=== PATIENT | male | born 1955 | race Caucasian/White ===

== ENCOUNTER 2019-01-15 09:02 | Emergency (ER) | payer OTHER ==
[~2019-01-15] VITALS: Ht 182.9 cm; Wt 95.2 kg
[~2019-01-15 09:02] MED LIST: Norco 5-325 Ta1 EACH PO; OXYACE5T PO; RXOXYACE PO
[2019-01-15] MEDS ORDERED: Norco 5-325 Ta1 EACH PO (10:27)
== END 2019-01-15 10:54 | disposition home or self-care (01) ==
LOC: ER 09:02
DX: S42.431A Displaced fracture (avulsion) of lateral epicondyle of right humerus, initial encounter for closed fracture (principal); S52.041A Displaced fracture of coronoid process of right ulna, initial encounter for closed fracture; I10 Essential (primary) hypertension; F17.210 Nicotine dependence, cigarettes, uncomplicated; W01.0XXA Fall on same level from slipping, tripping and stumbling without subsequent striking against object, initial encounter
CPT/HCPCS: 29105; 73080; 99283-25

== ENCOUNTER 2019-06-22 08:40 | Emergency (ER) | payer OTHER ==
[~2019-06-22] VITALS: Ht 182.9 cm; Wt 90.7 kg
[2019-06-22] MEDS ORDERED: IBUP600 PO (08:53)
[2019-06-22] MEDS ORDERED: HYDR1TAB94 PO (09:51)
[2019-06-22] MEDS ORDERED: Robaxin500 MG PO (09:51)
[2019-06-22] MEDS ORDERED: LIDO700A20 TOP (09:51)
== END 2019-06-22 10:49 | disposition home or self-care (01) ==
LOC: ER 08:40
DX: S22.41XA Multiple fractures of ribs, right side, initial encounter for closed fracture (principal); W01.198A Fall on same level from slipping, tripping and stumbling with subsequent striking against other object, initial encounter; I10 Essential (primary) hypertension; F17.210 Nicotine dependence, cigarettes, uncomplicated
CPT/HCPCS: 71101; 99283-25

== ENCOUNTER 2019-08-06 13:09 | Emergency (ER) | payer OTHER ==
[~2019-08-06] VITALS: Ht 182.9 cm; Wt 88.5 kg
[~2019-08-06 13:09] MED LIST changes: +HYDR1TAB94 PO; +IBUP600 PO; +LIDO700A20 TOP; +Robaxin500 MG PO
[2019-08-06 13:30] LABS: Chloride (POC) 101 mmol/L (98-108); Creatinine (POC) 0.9 mg/dL (0.8-1.3); Glucose (ISTAT POC) 142 mg/dL (70-99); Hemoglobin (POC) 17.3 g/dL (13.5-17.5); Potassium (POC) 4.3 mmol/L (3.5-5.5); Sodium (POC) 139 mmol/L (135-148); Total CO2 (POC) 30 mmol/L (21-32)
[2019-08-06 13:31] LABS: BASOPHILS ABSOLUTE AUTO 0.13 K/mm3 (0.00-0.23); BASOPHILS PERCENT AUTO 1 % (0-2); EOSINOPHILS ABSOLUTE AUTO 0.82 K/mm3 (0.00-0.68); EOSINOPHILS PERCENT AUTO 5 % (0-6); Hematocrit 49.2 % (37.0-53.0); Hemoglobin 17.6 g/dL (13.5-17.5); IMMATURE GRAN ABSOLUTE AUTO 0.05 K/mm3 (0.00-0.10); IMMATURE GRAN PERCENT AUTO 0 % (0-1); LYMPHOCYTES ABSOLUTE AUTO 1.69 K/mm3 (0.84-5.20); LYMPHOCYTES PERCENT AUTO 11 % (21-46); MONOCYTES ABSOLUTE AUTO 1.11 K/mm3 (0.16-1.47); MONOCYTES PERCENT AUTO 7 % (4-13); Mean Corpuscular HGB 36.7 pg (26.0-34.0); Mean Corpuscular HGB Conc 35.8 g/dL (31.5-36.5); Mean Corpuscular Volume 103 fL (80-100); Mean Platelet Volume 9.4 fL (9.1-12.4); NEUTROPHILS ABSOLUTE AUTO 11.79 K/mm3 (1.96-9.15); NEUTROPHILS PERCENT AUTO 76 % (41-73); Platelet Count 308 K/mm3 (150-400); RDW Coefficient Variation 11.8 % (11.7-14.2); RDW Standard Deviation 44.9 fL (35.1-46.3); Red Blood Cell Count 4.79 M/mm3 (4.30-5.90); White Blood Cell Count 15.59 K/mm3 (4.00-11.30)
[2019-08-06] MEDS ORDERED: LISI5 PO (13:51)
[2019-08-06] MEDS ORDERED: ATOR40TA PO (13:51)
[2019-08-06] MEDS ORDERED: Hydrochloroth12.5 MG PO (13:52)
[2019-08-06 14:30] LABS: Alanine Aminotransfer (ALT/SGP 33 U/L (12-78); Albumin, Blood 4.3 g/dL (3.4-5.0); Albumin/Globulin Ratio 0.9 (0.8-1.8); Alk Phos 84 U/L (40-126); Anion Gap 8 mmol/L (6-16); Aspartate Aminotrans (AST/SGOT 27 U/L (12-37); Bilirubin, Total 1.1 mg/dL (0.1-1.0); Blood Urea Nitrogen 26 mg/dL (8-24); CO2, Blood 28 mmol/L (21-32); Calcium, Blood 9.4 mg/dL (8.5-10.1); Chloride, Blood 102 mmol/L (98-108); Globulin, Blood 4.7 g/dL (2.2-4.0); Glomerular Filtration Rate >60 (60-); Glucose, Blood 144 mg/dL (70-99); Potassium, Blood 4.4 mmol/L (3.5-5.5); Sodium, Blood 138 mmol/L (136-145)
[2019-08-06] MEDS ORDERED: DELTASONE20 MG PO (17:58)
[2019-08-06] MEDS ORDERED: ALBU90OI INH (17:58)
== END 2019-08-06 18:12 | disposition home or self-care (01) ==
LOC: ER 13:09
PROVIDERS: Physician Assistant
DX: J44.1 Chronic obstructive pulmonary disease with (acute) exacerbation (principal); I10 Essential (primary) hypertension; Z87.891 Personal history of nicotine dependence; Z79.899 Other long term (current) drug therapy
CPT/HCPCS: 36415; 71046; 71260; 80047; 80053; 83605; 83880; 84484; 85014; 85025; 87040; 93005; 93010; 94640; 94644; 96361; 96374-59; 99285-25; J2930; J7030; Q9967

== ENCOUNTER 2021-02-28 18:45 | Emergency (ER) | payer OTHER ==
[~2021-02-28] VITALS: Ht 182.9 cm; Wt 88.5 kg
[~2021-02-28 18:45] MED LIST changes: +ALBU90OI INH; +ATOR40TA PO; +DELTASONE20 MG PO; +Hydrochloroth12.5 MG PO; +LISI5 PO
[2021-02-28] MEDS ORDERED: KLOR-CON 1010 ME1 PO (18:55)
[2021-02-28] MEDS ORDERED: ASPI81CH PO (18:55)
[2021-02-28] MEDS ORDERED: CLOP75 PO (18:56)
== END 2021-02-28 20:40 | disposition home or self-care (01) ==
LOC: ER 18:45
DX: T81.33XA Disruption of traumatic injury wound repair, initial encounter (principal); I10 Essential (primary) hypertension; Z79.82 Long term (current) use of aspirin; Z79.02 Long term (current) use of antithrombotics/antiplatelets; Z79.899 Other long term (current) drug therapy; Z87.891 Personal history of nicotine dependence; W01.0XXA Fall on same level from slipping, tripping and stumbling without subsequent striking against object, initial encounter
CPT/HCPCS: 12002; 99283-25

== ENCOUNTER 2021-10-18 09:44 | Emergency (ER) | payer OTHER ==
[~2021-10-18] VITALS: Ht 182.9 cm; Wt 86.2 kg
[~2021-10-18 09:44] MED LIST changes: +ASPI81CH PO; +CLOP75 PO; +KLOR-CON 1010 ME1 PO
[2021-10-18] MEDS ORDERED: Percocet 10-321 EACH PO (15:28)
== END 2021-10-18 15:43 | disposition home or self-care (01) ==
LOC: ER 09:44
DX: M51.16 Intervertebral disc disorders with radiculopathy, lumbar region (principal); M47.26 Other spondylosis with radiculopathy, lumbar region; I10 Essential (primary) hypertension; Z87.891 Personal history of nicotine dependence
CPT/HCPCS: 72100; J1170; J1885; J7030

== ENCOUNTER 2021-11-02 12:25 | Inpatient (IN) | payer OTHER, MEDICARE ==
[~2021-11-02] VITALS: Ht 172.7 cm; Wt 74.4 kg
[~2021-11-02 12:25] MED LIST changes: +LISI20 PO; -LISI5 PO; +Percocet 10-321 EACH PO
[2021-11-02 13:47] LABS: BASOPHILS ABSOLUTE AUTO 0.04 K/mm3 (0.00-0.23); BASOPHILS PERCENT AUTO 1 % (0-2); EOSINOPHILS ABSOLUTE AUTO 0.05 K/mm3 (0.00-0.68); EOSINOPHILS PERCENT AUTO 1 % (0-6); IMMATURE GRAN ABSOLUTE AUTO 0.46 K/mm3 (0.00-0.10); IMMATURE GRAN PERCENT AUTO 8 % (0-1); LYMPHOCYTES ABSOLUTE AUTO 0.68 K/mm3 (0.84-5.20); LYMPHOCYTES PERCENT AUTO 12 % (21-46); MONOCYTES PERCENT AUTO 9 % (4-13); Mean Corpuscular HGB 30.5 pg (26.0-34.0); Mean Corpuscular HGB Conc 30.7 g/dL (31.5-36.5); Mean Corpuscular Volume 99 fL (80-100); NEUTROPHILS ABSOLUTE AUTO 3.84 K/mm3 (1.96-9.15); NEUTROPHILS PERCENT AUTO 69 % (41-73); Platelet Count 195 K/mm3 (150-400); RDW Coefficient Variation 18.8 % (11.7-14.2); RDW Standard Deviation 66.1 fL (35.1-46.3); Red Blood Cell Count 1.64 M/mm3 (4.30-5.90); White Blood Cell Count 5.57 K/mm3 (4.00-11.30)
[2021-11-02 13:55] LABS: Hematocrit 16.3 % (37.0-53.0)
[2021-11-02 14:15] LABS: Albumin, Blood 2.8 g/dL (3.4-5.0); Albumin/Globulin Ratio 0.7 (0.8-1.8); Bilirubin, Total 0.5 mg/dL (0.1-1.0); Bun/Creatinine Ratio 27.5 (12.0-20.0); Calcium, Blood 8.3 mg/dL (8.5-10.1); Creatinine, Blood 1.38 mg/dL (0.60-1.20); Globulin, Blood 3.9 g/dL (2.2-4.0); Potassium, Blood 4.9 mmol/L (3.5-5.5); Total Protein, Blood 6.7 g/dL (6.4-8.2)
[2021-11-02 14:27] LABS: Source, Urine Clean Catch
[2021-11-02 14:37] LABS: Appearance, Urine Hazy (Clear); Bilirubin, Urine Neg (Neg); Blood, Urine Neg (Neg); Color, Urine Yellow (P-Yellow); Glucose Qualitative, Urine Neg (Neg); Ketones, Urine Neg (Neg); Leukocyte Esterase, Urine Neg (Neg); Nitrite, Urine Neg (Neg); Protein, Urine 1+ (Neg); Specific Gravity, Urine 1.015 (1.003-1.022); Urobilinogen, Urine NORM (Normal)
[2021-11-02 14:56] LABS: Bacteria Mod /hpf; Red Blood Cells, Urine Not Seen /hpf (0-2); Squamous Epithelial Cells Rare /hpf (Few); White Blood Cells, Urine Rare /hpf (0-5)
[2021-11-02 17:40] LABS: IMMATURE RETIC FRACTION 29.1 % (2.3-16.0); RETICULOCYTE ABSOLUTE 0.0328 M/mm3 (0.0200-0.1100); RETICULOCYTE COUNT PERCENT 2.2 % (0.50-2.50)
[2021-11-02 17:54] LABS: Hematocrit 14.8 % (37.0-53.0); Hemoglobin 4.6 g/dL (13.5-17.5)
[2021-11-03 02:37] LABS: Mean Corpuscular HGB 31.3 pg (26.0-34.0); Mean Corpuscular HGB Conc 32.9 g/dL (31.5-36.5); Mean Corpuscular Volume 95 fL (80-100); Platelet Count 151 K/mm3 (150-400); RDW Coefficient Variation 17.2 % (11.7-14.2); RDW Standard Deviation 56.5 fL (35.1-46.3); Red Blood Cell Count 1.79 M/mm3 (4.30-5.90); White Blood Cell Count 4.36 K/mm3 (4.00-11.30)
[2021-11-03 02:45] LABS: Hemoglobin 5.6 g/dL (13.5-17.5)
[2021-11-03 03:02] LABS: BAND PERCENT MAN 5 % (0-8); BASOPHILS ABSOLUTE MAN 0.04 K/mm3 (0.00-0.23); BASOPHILS PERCENT MAN 1 % (0-2); EOSINOPHILS PERCENT MAN 0 % (0-6); LYMPHOCYTES ABSOLUTE MAN 0.61 K/mm3 (0.84-5.20); LYMPHOCYTES PERCENT MAN 14 % (21-46); METAMYELOCYTE ABSOLUTE MAN 0.04 K/mm3 (0.00-0.00); METAMYELOCYTE PERCENT MAN 1 % (0-0); MONOCYTES ABSOLUTE MAN 0.34 K/mm3 (0.16-1.47); MONOCYTES PERCENT MAN 8 % (4-13); MYELOCYTE ABSOLUTE MAN 0.04 K/mm3 (0.00-0.00); MYELOCYTE PERCENT MAN 1 % (0-0); NEUTROPHILS ABSOLUTE MAN 3.27 K/mm3 (1.96-9.15); SEG NEUTROPHILS PERCENT MAN 70 % (41-73); TOTAL CELLS COUNTED 100
[2021-11-03 03:09] LABS: Albumin, Blood 2.4 g/dL (3.4-5.0); Albumin/Globulin Ratio 0.7 (0.8-1.8); Bilirubin, Total 0.8 mg/dL (0.1-1.0); Bun/Creatinine Ratio 27.7 (12.0-20.0); Calcium, Blood 7.6 mg/dL (8.5-10.1); Creatinine, Blood 1.3 mg/dL (0.60-1.20); Globulin, Blood 3.4 g/dL (2.2-4.0); Potassium, Blood 4.8 mmol/L (3.5-5.5); Total Protein, Blood 5.8 g/dL (6.4-8.2)
--- NOTE | 2021-11-03 07:18 | NUR ---
SHIFT SUMMARY PT IS A 66 Y/O MALE, ADMITTED FOR SEVERE ANEMIA AND WITH A RECENT DX OF CANCER WITH METS. HE IS A&O X 4, 1PA TO THE BATHROOM. PT RECEIVED 3 UNITS OF PRBCS DURING THE NIGHT, WITH LAST H&H BETWEEN SECOND AND THIRD UNIT AT 5.6/17.0. HOSPITALIST DR PACHECO INFORMED, AND THIRD UNIT ORDERED AND TRANSFUSED. AT START OF THIRD UNIT OF PRBCS, PT TEMP INCREASED FROM 99.1 TO 100.6. NO OTHER SIGNS OF REACTION NOTED. HOSPITALIST DR PACHECO NOTIFIED, AND HE ORDERED THE UNIT OF BLOOD TO BE FINISHED. BP WAS LOW THROUGH THE NIGHT, IN THE 90S SYSTOLIC. TELE SHOWED NSR IN THE 90S WITH FREQUENT PVCS. VITAL SIGNS OTHERWISE STABLE. PT WAS MEDICATED FOR GENERALIZED PAIN WITH PRN OXYCODONE. NO C/O NAUSEA OR SOB. NO OTHER ACUTE CHANGES IN PT CONDITION NOTED DURING THE NIGHT. REPORT GIVEN TO ONCOMING RN.
[2021-11-03 08:52] LABS: Hematocrit 20.3 % (37.0-53.0); Hemoglobin 6.8 g/dL (13.5-17.5)
--- NOTE | 2021-11-03 11:07 | NUR ---
Spiritual care visit conducted. Patient is sitting on EOB and alert. Patient immediately tells me about his cancer diagnosis and the troubles he is having with health issurance and having to travel to [place] for treatment. He tells me that he lives alone and has a strained but amicable relationship with his daughter who lives in [place]. After surface level discussion some therapeutic alliance is established and patient becomes emotional about his diagnosis and his fears of the unknown. Patient also talks about the fact that he is "not a holiness man" but he is leaning into God with his prayers at this time. I normalize patient's experience, and provide therapeutic listening, anxiety containment, spiritual guidance and prayer. Patient responds well and shows signs of increased peace. I will continue to assist patient in developing a health prayer practice.
--- NOTE | 2021-11-03 12:31 | NUR ---
Pt alert oriented affect flat very fatigued and stressed. He was engaged in converstion good eye contact. We reviewed his symptoms he has started having mild headaches and blurred vision. he feels slightly short of breath and some pain with deep breathing. most of his pain is in his back he is starting to have more pressure and pain in his pelvis and hips. walking has become more painfull and difficult. Denies falling but suspecct he has. States urination is ok but frequent. He has had some constipation but not now. He is sleeping ok but struggling with food and appetite. He has been using heat at home for his back he has not tried ice or alternting heat and ice. He feels the increase pain medication is helping. We had an in depth conversation about his support system. 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 He has a daughter that he has not told yet about his health. He has not experinced cancer treament with a friend or family member. He became tearfull when discussing his daughter. Gave him a choice of reviewing treament and his future needs now or later. He wanted to talk now because he has been trying to sort out and wondering what will happen. We reviewed diagnositics and biopsy and seeing on oncolgist and radiologist. Review of chemo and radiation and immunosuppression medications. stated that our department will be a remain a resource to him and can help if needed after discharge. Was forthwright about how tough this will be. Advised him once we have a disgnosis then we will talk about what he wants to do. He epressed some relief at knowing how to go forward. May have to continue these conversations he is very fatigued and frail he may not retain the information due to his stress, anemeia and narcotics. He has his cell phone but no key entry operator. it is very old and specific cable had him call his friend to bring his cable. Asked him to call his daughter. Gave him our office number and advised we can update his daughter with the details. Review of home medications. He ahs only been taking his blood pressure medicine no lipitor. He denies any durgs or alcohol. Updated phsyician suggest we hold lipitor due to potential side effects. Spoke with boxing and pressing supervisor about smaller more frequnt meals.Suggest better IV access and discussed possible future need for nephrology with phsycian. Will continue to have chaplian see him. Will get a polst and discuss whishes once he is diagnosed. It would be to much right now. Will montitor pain and constipation. .
--- NOTE | 2021-11-03 12:47 | NUR ---
NURSES NOTE PATIENT IS REFUSING HATCH CATHETER. PHYSICIAN NOTIFIED.
[2021-11-03 15:21] LABS: Hematocrit 21.2 % (37.0-53.0); Hemoglobin 7.1 g/dL (13.5-17.5)
[2021-11-03 18:19] LABS: Hematocrit 22.1 % (37.0-53.0); Hemoglobin 7.5 g/dL (13.5-17.5)
--- NOTE | 2021-11-03 18:33 | NUR ---
SHIFT SUMMARY PATIENT ATTEMPTING TO REST IN BED UNABLE TO GET COMFORTABLE. PATIENT COMPLAINING OF CHRONIC BACK PAIN 09/03. MEDICATED PER JAN. PATIENT HAS WOUND ON MID BACK WITH MEPILEX DRESSING IN PLACE. BP LOW AND BP MEDS HELD. PATIENT RECEIVED 1 UNIT OF BLOOD THIS SHIFT. LAST H&H 7.1. PATIENT REFUSED HATCH CATHETER PLACEMENT AND DOCTOR NOTIFIED. TELEMETRY D/C'D. PATIENT WENT TO CT TODAY. TOLERATED WELL. WILL CONTINUE TO MONITOR.
[2021-11-04 00:24] LABS: Hematocrit 21.1 % (37.0-53.0); Hemoglobin 7.2 g/dL (13.5-17.5)
--- NOTE | 2021-11-04 03:40 | NUR ---
SHIFT SUMMARY PATIENT HAD NO ACUTE CHANGES OBSERVED. AXOX 4 AND SBA TO BR. USES URINAL AT BS. REPORTED BACK PAIN AND OXYCODONE 10 MG GIVEN PER EMAR. DENIES CHEST PAIN, SOB, AND N/V. PIV REMAIN INTACT. VSS/AFEBRILE. COOPERATIVE WITH CARE. CALL LIGHT IN REACH. BED IN LOWEST POSITION. WILL CONTINUE TO MONITOR UNTIL DAY SHIFT NURSE ASSUMES CARE.
[2021-11-04 06:42] LABS: Hematocrit 21.8 % (37.0-53.0); Hemoglobin 7.3 g/dL (13.5-17.5); Mean Corpuscular HGB 30.8 pg (26.0-34.0); Mean Corpuscular HGB Conc 33.5 g/dL (31.5-36.5); Mean Corpuscular Volume 92 fL (80-100); Mean Platelet Volume 9.3 fL (9.1-12.4); Platelet Count 148 K/mm3 (150-400); RDW Coefficient Variation 17.1 % (11.7-14.2); RDW Standard Deviation 54.2 fL (35.1-46.3); Red Blood Cell Count 2.37 M/mm3 (4.30-5.90); White Blood Cell Count 4.94 K/mm3 (4.00-11.30)
[2021-11-04 07:02] LABS: Albumin, Blood 2.3 g/dL (3.4-5.0); Anion Gap 10 mmol/L (6-16); Blood Urea Nitrogen 33 mg/dL (8-24); Bun/Creatinine Ratio 24.1 (12.0-20.0); CO2, Blood 20 mmol/L (21-32); Calcium, Blood 8.1 mg/dL (8.5-10.1); Chloride, Blood 108 mmol/L (98-108); Creatinine, Blood 1.37 mg/dL (0.60-1.20); Glomerular Filtration Rate 52 (60-); Glucose, Blood 93 mg/dL (70-99); Phosphorus, Blood 3.2 mg/dL (2.5-4.9); Potassium, Blood 4.6 mmol/L (3.5-5.5); Sodium, Blood 138 mmol/L (136-145)
[2021-11-04 07:06] LABS: BAND PERCENT MAN 4 % (0-8); BASOPHILS ABSOLUTE MAN 0.14 K/mm3 (0.00-0.23); BASOPHILS PERCENT MAN 3 % (0-2); EOSINOPHILS ABSOLUTE MAN 0.04 K/mm3 (0.00-0.68); EOSINOPHILS PERCENT MAN 1 % (0-6); LYMPHOCYTES ABSOLUTE MAN 0.64 K/mm3 (0.84-5.20); LYMPHOCYTES PERCENT MAN 13 % (21-46); METAMYELOCYTE ABSOLUTE MAN 0.09 K/mm3 (0.00-0.00); METAMYELOCYTE PERCENT MAN 2 % (0-0); MONOCYTES ABSOLUTE MAN 0.24 K/mm3 (0.16-1.47); MONOCYTES PERCENT MAN 5 % (4-13); NEUTROPHILS ABSOLUTE MAN 3.75 K/mm3 (1.96-9.15); SEG NEUTROPHILS PERCENT MAN 72 % (41-73); TOTAL CELLS COUNTED 100
[2021-11-04 11:32] LABS: Source, Urine Catheter
[2021-11-04 11:37] LABS: Appearance, Urine Clear (Clear); Bilirubin, Urine Neg (Neg); Blood, Urine Neg (Neg); Color, Urine Yellow (P-Yellow); Glucose Qualitative, Urine Neg (Neg); Ketones, Urine Neg (Neg); Leukocyte Esterase, Urine Neg (Neg); Nitrite, Urine Neg (Neg); Protein, Urine 1+ (Neg); Specific Gravity, Urine 1.015 (1.003-1.022); Urobilinogen, Urine NORM (Normal)
--- NOTE | 2021-11-04 14:11 | NUR ---
Requested by hospitalist to consult for pain management for Sae. Chart reviewed. Dr. Santana consulted with pt this morning and together they came up with a treatment plan for Sae's prostate cancer going forward. Reviewed Dr. Alarcon's and Dr. Santana's notes, labs, EMAR and pt's home med list. Dr. Santana has ordered dexamethasone 4 mg BID for pt's bone pain as well as to decrease the side effects from the chemo that pt will start while he is here in the hospital. Spoke with nursing and went to go visit with pt. Sae has recently received IV dilaudid and is currently asleep with occasional snoring at this time. Left Sae undisturbed as he appears comfortable at this time. Reviewed pt's current pain regimen with [facility] pharmacist. Will plan to reevaluate pt's pain once dexamethasone has been started. If the IV dilaudid works better for managing pt's pain, may consider changing to PO dilaudid if pt is tolerating PO food/fluids without nausea. May consider a longer acting narcotic if the current dexamethasone, dilaudid and oxycodone do not provide patient with manageble pain relief. Nursing updated. PC to continue to follow for symptom management and advanced care planning as needed.
--- NOTE | 2021-11-04 18:45 | NUR ---
SHIFT SUMMARY PATIENT IS SITTING UP IN BED. PATIENT IS BEING MEDICATED FOR SEVERE BACK PAIN WITH LITTLE RELIEF FROM THE PAIN MEDICATIONS. 3L NC APPLIED AFTER GIVING DILAUDID AND CONTINUOUS PULSE OX ON AND PLACED INSIDE ROOM. PATIENT STATED HE WAS STRUGGLING TO URINATE AND AGREED TO HAVING A HATCH CATHETER PLACED. TOLERATED WELL. DR. LARSEN CAME BY AND DISCUSSED PATIENT'S STAGE 4 PROSTATE CANCER AND PATIENT AGREED TO START CHEMO. CHEMO MEDICATION MUST BE ORDERED PER PHARMACY AND WILL NOT BE AVAILABLE UNTIL SATURDAY OR . WILL CONTINUE TO MONITOR.
--- NOTE | 2021-11-05 03:19 | NUR ---
SHIFT SUMMARY PATIENT HAD NO ACUTE CHANGES OBSERVED. AXOX 4 AND SBA TO BR. REPORTED BACK PAIN AND OXYCODONE 10 MG GIVEN PER EMAR. DENIES SOB AND N/V. VSS/AFEBRILE. ON 3L O2 NC. HATCH PATENT AND DRAINING TO GRAVITY. CALL LIGHT IN REACH. BED IN LOWEST POSITION. WILL CONTINUE TO MONITOR UNTIL DAY SHIFT NURSE ASSUMES CARE.
[2021-11-05 04:42] LABS: Hematocrit 22.2 % (37.0-53.0); Hemoglobin 7.2 g/dL (13.5-17.5); Mean Corpuscular HGB 30.5 pg (26.0-34.0); Mean Corpuscular HGB Conc 32.4 g/dL (31.5-36.5); Mean Corpuscular Volume 94 fL (80-100); Mean Platelet Volume 9.4 fL (9.1-12.4); Platelet Count 142 K/mm3 (150-400); RDW Coefficient Variation 16.8 % (11.7-14.2); RDW Standard Deviation 55.1 fL (35.1-46.3); Red Blood Cell Count 2.36 M/mm3 (4.30-5.90); White Blood Cell Count 4.52 K/mm3 (4.00-11.30)
[2021-11-05 05:27] LABS: BAND PERCENT MAN 10 % (0-8); BASOPHILS ABSOLUTE MAN 0.04 K/mm3 (0.00-0.23); BASOPHILS PERCENT MAN 1 % (0-2); EOSINOPHILS PERCENT MAN 0 % (0-6); LYMPHOCYTES ABSOLUTE MAN 0.13 K/mm3 (0.84-5.20); LYMPHOCYTES PERCENT MAN 3 % (21-46); MONOCYTES ABSOLUTE MAN 0.31 K/mm3 (0.16-1.47); MONOCYTES PERCENT MAN 7 % (4-13); MYELOCYTE ABSOLUTE MAN 0.09 K/mm3 (0.00-0.00); MYELOCYTE PERCENT MAN 2 % (0-0); NEUTROPHILS ABSOLUTE MAN 3.93 K/mm3 (1.96-9.15); SEG NEUTROPHILS PERCENT MAN 77 % (41-73); TOTAL CELLS COUNTED 100
[2021-11-05 05:41] LABS: Anion Gap 10 mmol/L (6-16); Blood Urea Nitrogen 32 mg/dL (8-24); Bun/Creatinine Ratio 27.8 (12.0-20.0); CO2, Blood 20 mmol/L (21-32); Calcium, Blood 8.6 mg/dL (8.5-10.1); Chloride, Blood 107 mmol/L (98-108); Creatinine, Blood 1.15 mg/dL (0.60-1.20); Glomerular Filtration Rate >60 (60-); Glucose, Blood 146 mg/dL (70-99); Potassium, Blood 4.9 mmol/L (3.5-5.5); Sodium, Blood 137 mmol/L (136-145)
--- NOTE | 2021-11-05 15:19 | NUR ---
Pt resting in bed upon arrival. Pt reports 5/10 pain. He reports current regimen is managing his pain. Reviewed plan of care and offered therapeutic listening. Answered questions and validated concerns. Pt expresses appreciation and reports no other concerns at this time. Palliative Care will remain available.
--- NOTE | 2021-11-05 18:42 | NUR ---
SHIFT SUMMARY PATIENT RESTING IN BED. PAIN WAS MORE CONTROLLED THROUGHOUT SHIFT THAN YESTERDAY WITH ONLY PO PAIN MEDS NEEDED. PATIENT TOOK OFF NC AND CONTINUOUS PULSE OX. TOLERATED WELL. PATIENT GOT UP TO CHAIR FOR LUNCH AND WORKED WITH PHYSICAL THERAPY TODAY. VITAL SIGNS STABLE. WILL CONTINUE TO MONITOR.
--- NOTE | 2021-11-06 03:04 | NUR ---
SHIFT SUMMARY PATIENT HAD NO ACUTE CHANGES OBSERVED. AXOX 4 AND SBA TO BR. ON ROOM AIR. HATCH PATENT AND DRAINING TO GRAVITY. VSS/AFEBRILE. REPORTED BACK/HIP PAIN AND OXYCODONE 10 MG GIVEN PER EMAR. PATIENT ABLE TO SLEEP. DENIES SOB AND N/V. COOPERATIVE WITH CARE. CALL LIGHT IN REACH. BED IN LOWEST POSITION. WILL CONTINUE TO MONITOR UNTIL DAY SHIFT NURSE ASSUMES CARE.
[2021-11-06 05:27] LABS: Hematocrit 21.4 % (37.0-53.0); Mean Corpuscular HGB 31.1 pg (26.0-34.0); Mean Corpuscular HGB Conc 32.7 g/dL (31.5-36.5); Mean Corpuscular Volume 95 fL (80-100); Mean Platelet Volume 9.7 fL (9.1-12.4); Platelet Count 141 K/mm3 (150-400); RDW Coefficient Variation 16.4 % (11.7-14.2); RDW Standard Deviation 55.8 fL (35.1-46.3); Red Blood Cell Count 2.25 M/mm3 (4.30-5.90); White Blood Cell Count 4.84 K/mm3 (4.00-11.30)
[2021-11-06 06:01] LABS: BAND PERCENT MAN 15 % (0-8); BASOPHILS PERCENT MAN 0 % (0-2); EOSINOPHILS PERCENT MAN 0 % (0-6); LYMPHOCYTES ABSOLUTE MAN 0.33 K/mm3 (0.84-5.20); LYMPHOCYTES PERCENT MAN 7 % (21-46); METAMYELOCYTE ABSOLUTE MAN 0.09 K/mm3 (0.00-0.00); METAMYELOCYTE PERCENT MAN 2 % (0-0); MONOCYTES ABSOLUTE MAN 0.48 K/mm3 (0.16-1.47); MONOCYTES PERCENT MAN 10 % (4-13); NEUTROPHILS ABSOLUTE MAN 3.92 K/mm3 (1.96-9.15); SEG NEUTROPHILS PERCENT MAN 66 % (41-73); TOTAL CELLS COUNTED 100
[2021-11-06 06:15] LABS: Anion Gap 10 mmol/L (6-16); Blood Urea Nitrogen 40 mg/dL (8-24); Bun/Creatinine Ratio 34.2 (12.0-20.0); CO2, Blood 21 mmol/L (21-32); Calcium, Blood 8.1 mg/dL (8.5-10.1); Chloride, Blood 106 mmol/L (98-108); Creatinine, Blood 1.17 mg/dL (0.60-1.20); Glomerular Filtration Rate >60 (60-); Glucose, Blood 128 mg/dL (70-99); Potassium, Blood 5.4 mmol/L (3.5-5.5); Sodium, Blood 137 mmol/L (136-145)
--- NOTE | 2021-11-06 12:04 | NUR ---
CHEMO- REVIEWED SIGNS AND SYMPTOMS OF REACTION WITH PT, MEDICATION INFORMATION GIVEN TO PT. IV PATENT WITH POSITIVE BLOOD RETURN. VSS AT THIS TIME. 2ND RN VERIFICATION WITH NICHOLAS DIAZ. CHEMO STARTED AT 1115. PT NOTED TO BE ANXIOUS AND APPEARED TO BE HYPERVENTILATING, SATS DROPPED TO 70'S ON ROOM AIR. PT INSTRUCTED TO TAKE DEEP BREATHS AND OXYGEN APPLIED. BEDSIDE RN NOTIFIED DR HOLM AND ORDERS RECEIVED FOR IV ATIVAN. SATS BACK IN THE 90'S. DR HOLM AT BEDSIDE. 1MG IV ATIVAN ADMINISTERED PER ORDERS. REPEAT VSS AT THIS TIME. PT REMAINS ON 3L 02 AT THIS TIME, PT APPEARS TO BE RELAXING AND TOLERATING MEDICATION AT THIS TIME.
--- NOTE | 2021-11-06 12:36 | NUR ---
CHEMO COMPLETED, IV FLUSHES WELL AND PT SITTING UP EATING LUNCH AT THIS TIME.
--- NOTE | 2021-11-06 17:39 | NUR ---
PATIENT A/OX4, UP WALKING IN HALLS TODAY WITH PT. REPORTS PAIN IN BACK AND LEGS, CONTROLLED WITH OXYCODONE. FIRST DOSE OF CHEMO DONE IN THE ROOM TODAY, PATIENT DID HAVE AND EPISODE OF ANXIETY AND HYPERVENTILATED. O2 APPLIED AND ATIVAN GIVEN WITH GOOD RELIEF. PATIENT NOW ON RA. SKIN INTACT. BOWEL CARE GIVEN AND PATIENT WAS ABLE TO HAVE A BM THIS EVENING. DENIES ANY NAUSEA OR ABDOMINAL PAIN, TOLERATING REGULAR DIET. UPDATED PATIENTS DAUGHTER JOSE CARLOS AND SHE PLANS TO COME BY TOMORROW AND VISIT. 2OG IV TO R FA WNL AND SL. PATIENT IS COOPERATIVE WITH CARE AND CALLS APPROPRIATELY FOR ASSISTANCE.
--- NOTE | 2021-11-07 03:11 | NUR ---
BANG CAVAZOS A STABLE NIGHT. ASKED FOR PAIN (8) MEDS AT AROUND. HAD A LARGE BM AT AROUND 2130. SLEPT THROUGHOUT THE NIGHT.
[2021-11-07 09:28] LABS: Hematocrit 23.1 % (37.0-53.0); Hemoglobin 7.5 g/dL (13.5-17.5); Mean Corpuscular HGB Conc 32.5 g/dL (31.5-36.5); Mean Corpuscular Volume 96 fL (80-100); Mean Platelet Volume 9.3 fL (9.1-12.4); Platelet Count 143 K/mm3 (150-400); RDW Coefficient Variation 16.6 % (11.7-14.2); RDW Standard Deviation 56.7 fL (35.1-46.3); Red Blood Cell Count 2.42 M/mm3 (4.30-5.90); White Blood Cell Count 4.19 K/mm3 (4.00-11.30)
--- NOTE | 2021-11-07 16:16 | NUR ---
pt daughter Lizbet Sarabjit attemtpted contact will follow up. pt up in room totlerating care. Will need penitentiary care plan. natalia schulery .
--- NOTE | 2021-11-07 18:08 | NUR ---
PATIENT HAD A GOOD DAY TODAY. AMBULATED IN HALLS A FEW TIMES WITH SBA. PAIN WELL CONTROLLED WITH OXYCODONE AND TYLENOL. PATIENT TOLERATING REGULAR DIET, DENIES ANY NAUSEA OR ABDOMINAL PAIN. BOWEL CARE ORDERED, LAST BM YESTERDAY. VSS, ON RA. HATCH D/C'D TODAY AND PATIENT IS VOIDING. CALM AND COOPERATIVE [facility], CALLS APPROPRIATELY FOR ASSISTANCE. POSSIBLE D/C TOMORROW WITH HOME HEALTH.
--- NOTE | 2021-11-08 03:39 | NUR ---
SHIFT SUMMARY A/OX4, SBA TO [facility]. C/O MODERATE PAIN TO LEGS, MEDICATED PER EMAR. VSS, NO ACUTE CHANGES AT THIS TIME. BED IN LOWEST POSITION WITH CALL LIGHT IN REACH. WILL CONTINUE TO MONITOR AND REPORT TO ONCOMING RN.
[2021-11-08 06:05] LABS: Hematocrit 25.5 % (37.0-53.0); Mean Corpuscular HGB 30.4 pg (26.0-34.0); Mean Corpuscular HGB Conc 31.4 g/dL (31.5-36.5); Mean Corpuscular Volume 97 fL (80-100); Mean Platelet Volume 9.9 fL (9.1-12.4); Platelet Count 187 K/mm3 (150-400); RDW Coefficient Variation 16.7 % (11.7-14.2); RDW Standard Deviation 57.1 fL (35.1-46.3); Red Blood Cell Count 2.63 M/mm3 (4.30-5.90); White Blood Cell Count 4.57 K/mm3 (4.00-11.30)
[2021-11-08 07:00] LABS: Anion Gap 10 mmol/L (6-16); Blood Urea Nitrogen 44 mg/dL (8-24); Bun/Creatinine Ratio 42.7 (12.0-20.0); CO2, Blood 21 mmol/L (21-32); Calcium, Blood 6.2 mg/dL (8.5-10.1); Chloride, Blood 108 mmol/L (98-108); Creatinine, Blood 1.03 mg/dL (0.60-1.20); Glomerular Filtration Rate >60 (60-); Glucose, Blood 105 mg/dL (70-99); Potassium, Blood 4.9 mmol/L (3.5-5.5); Sodium, Blood 139 mmol/L (136-145)
[2021-11-08] MEDS ORDERED: DOCU100 PO (11:56)
[2021-11-08] MEDS ORDERED: FAMO20 PO (11:56)
[2021-11-08] MEDS ORDERED: OXYC10TA19 PO (11:57)
[2021-11-08] MEDS ORDERED: MIRALAX17 GM PO (11:58)
[2021-11-08] MEDS ORDERED: SENN187 PO (11:58)
[2021-11-08] MEDS ORDERED: ONDA4ODT MM (11:59)
[2021-11-08] MEDS ORDERED: FINA5 PO (11:59)
[2021-11-08] MEDS ORDERED: TAMS.4ER PO (12:00)
--- NOTE | 2021-11-08 14:29 | NUR ---
PATIENT D/C'D HOME WITH HOME HEALTH. RX MEDICATIONS FAXED TO [facility] ON [address]. HARD SCRIPT FOR OXYCODONE GIVEN TO PATIENT. DC INSTRUCTIONS AND EDUCATION DISCUSSED WITH PATIENT AND COPY PROVIDED. F/U APPTS MADE WITH NEW PCP AND DR. KAPLAN. PATIENT DENIES ANY FURTHER QUESTIONS OR CONCERNS.
--- NOTE | 2021-11-08 15:51 | NUR ---
Received referral from nurse care advocate (Jeannie Foy) on 11/08/2021. Patient discharged with orders for home health and elected [facility]. Met with patient to further discuss the above. Patient is agreeable to the above. Discussed homebound status definition with patient. Patient verbalized understanding. Discussed what home health is vs what it is not (in home caregivers/housekeeping). Patient verbalized understanding. Discussed the next steps in the process of an initial assessment to determine frequency of visits. Again patient verbalized understanding. Offered a chance for patient to ask questions regarding the above of which there were none. Gathered all supporting documentation for referral (face sheet, face to face, med list, H&P, discharge summary, and most recent PT assessment) and sent to [facility] for review. No further interventions required. Megan Wilhelm Referral Liaison
== END 2021-11-08 14:28 | disposition home health service (06) | DRG 542 ==
LOC: ER 12:25 → MEDS 17:08
PROVIDERS: Internal Medicine; Physician Assistant; ADMIT Internal Medicine
PROC: 30233N1 Transfusion of Nonautologous Red Blood Cells into Peripheral Vein, Percutaneous Approach (ICD-10-PCS; principal; 2021-11-02)
PROC: HZ2ZZZZ Detoxification Services for Substance Abuse Treatment (ICD-10-PCS; 2021-11-02)
DX: C79.51 Secondary malignant neoplasm of bone (principal); J96.01 Acute respiratory failure with hypoxia; N13.30 Unspecified hydronephrosis; E46 Unspecified protein-calorie malnutrition; N17.9 Acute kidney failure, unspecified; J98.11 Atelectasis; I12.9 Hypertensive chronic kidney disease with stage 1 through stage 4 chronic kidney disease, or unspecified chronic kidney disease; N18.30 Chronic kidney disease, stage 3 unspecified; N32.0 Bladder-neck obstruction; D69.6 Thrombocytopenia, unspecified; C61 Malignant neoplasm of prostate; D63.0 Anemia in neoplastic disease; I73.9 Peripheral vascular disease, unspecified; Z68.28 Body mass index [BMI] 28.0-28.9, adult; Z95.828 Presence of other vascular implants and grafts; Z87.891 Personal history of nicotine dependence; Z79.02 Long term (current) use of antithrombotics/antiplatelets; Z79.82 Long term (current) use of aspirin; Z79.899 Other long term (current) drug therapy
CPT/HCPCS: 36415; 36430; 71045; 71260; 72132; 74177; 80048; 80053; 80069; 81001; 82607; 82728; 82746; 82947; 83036; 83540; 83550; 85014; 85018; 85025; 85027; 85045; 86850; 86900; 86901; 86920; 86923; 87086; 94760; 94762; 97110; 97116; 97162; 97530; 99285-25; A9270; G0103; J0881; J1100; J1170; J1650; J2060; J2405; J3411; J3489; J7030; J7050; J7060; J9171; P9016; Q9967

== ENCOUNTER 2021-12-07 14:13 | Emergency (ER) | payer OTHER ==
[~2021-12-07] VITALS: Ht 180.3 cm; Wt 74.8 kg
[~2021-12-07 14:13] MED LIST changes: +DOCU100 PO; +FAMO20 PO; +FINA5 PO; +MIRALAX17 GM PO; +ONDA4ODT MM; +OXYC10TA19 PO; +SENN187 PO; +TAMS.4ER PO
[2021-12-07 15:29] LABS: Mean Corpuscular HGB 31.1 pg (26.0-34.0); Mean Corpuscular HGB Conc 30.9 g/dL (31.5-36.5); Mean Corpuscular Volume 101 fL (80-100); Mean Platelet Volume 9.6 fL (9.1-12.4); Platelet Count 187 K/mm3 (150-400); RDW Coefficient Variation 20.2 % (11.7-14.2); RDW Standard Deviation 69.3 fL (35.1-46.3); Red Blood Cell Count 1.48 M/mm3 (4.30-5.90); White Blood Cell Count 7.18 K/mm3 (4.00-11.30)
[2021-12-07 15:51] LABS: Hematocrit 14.9 % (37.0-53.0); Hemoglobin 4.6 g/dL (13.5-17.5)
[2021-12-07 15:59] LABS: Troponin I <0.015 ng/mL (0.000-0.040)
[2021-12-07 16:02] LABS: Alanine Aminotransfer (ALT/SGP 9 U/L (12-78); Albumin, Blood 2.5 g/dL (3.4-5.0); Albumin/Globulin Ratio 0.6 (0.8-1.8); Alk Phos 202 U/L (50-136); Anion Gap 7 mmol/L (6-16); Aspartate Aminotrans (AST/SGOT 28 U/L (12-37); Bilirubin, Total 0.4 mg/dL (0.1-1.0); Blood Urea Nitrogen 24 mg/dL (8-24); Bun/Creatinine Ratio 15.4 (12.0-20.0); CO2, Blood 20 mmol/L (21-32); Chloride, Blood 113 mmol/L (98-108); Creatinine, Blood 1.56 mg/dL (0.60-1.20); Globulin, Blood 3.9 g/dL (2.2-4.0); Glomerular Filtration Rate 45 (60-); Glucose, Blood 129 mg/dL (70-99); Potassium, Blood 4.9 mmol/L (3.5-5.5); Sodium, Blood 140 mmol/L (136-145); Total Protein, Blood 6.4 g/dL (6.4-8.2)
[2021-12-07 16:14] LABS: BAND PERCENT MAN 4 % (0-8); BASOPHILS PERCENT MAN 0 % (0-2); BLASTS PERCENT MAN 1 % (0-0); EOSINOPHILS PERCENT MAN 0 % (0-6); LYMPHOCYTES ABSOLUTE MAN 0.35 K/mm3 (0.84-5.20); LYMPHOCYTES PERCENT MAN 5 % (21-46); METAMYELOCYTE ABSOLUTE MAN 0.14 K/mm3 (0.00-0.00); METAMYELOCYTE PERCENT MAN 2 % (0-0); MONOCYTES ABSOLUTE MAN 0.28 K/mm3 (0.16-1.47); MONOCYTES PERCENT MAN 4 % (4-13); MYELOCYTE ABSOLUTE MAN 0.21 K/mm3 (0.00-0.00); MYELOCYTE PERCENT MAN 3 % (0-0); NEUTROPHILS ABSOLUTE MAN 6.03 K/mm3 (1.96-9.15); PROMYELOCYTE ABSOLUTE MAN 0.07 K/mm3 (0.00-0.00); PROMYELOCYTE PERCENT MAN 1 % (0-0); SEG NEUTROPHILS PERCENT MAN 80 % (41-73); TOTAL CELLS COUNTED 100
== END 2021-12-07 20:25 | disposition home or self-care (01) ==
LOC: ER 14:13
PROVIDERS: Physician Assistant
DX: D64.9 Anemia, unspecified (principal); I10 Essential (primary) hypertension; I73.9 Peripheral vascular disease, unspecified; Z79.82 Long term (current) use of aspirin; Z79.891 Long term (current) use of opiate analgesic; Z79.899 Other long term (current) drug therapy; Z85.46 Personal history of malignant neoplasm of prostate; Z87.891 Personal history of nicotine dependence
CPT/HCPCS: 36415; 36430; 80053; 84484; 85025; 86850; 86900; 86901; 86923; 93005; 93010; 99283-25; J7030; P9016

== ENCOUNTER → 2022-02-15 | Outpatient (CLI) | payer OTHER ==
[2022-02-15 12:31] LABS: Alanine Aminotransfer (ALT/SGP 12 U/L (12-78); Albumin, Blood 2.5 g/dL (3.4-5.0); Albumin/Globulin Ratio 0.7 (0.8-1.8); Alk Phos 197 U/L (50-136); Anion Gap 6 mmol/L (6-16); Aspartate Aminotrans (AST/SGOT 14 U/L (12-37); Bilirubin, Total 0.4 mg/dL (0.1-1.0); Blood Urea Nitrogen 18 mg/dL (8-24); Bun/Creatinine Ratio 15.3 (12.0-20.0); CO2, Blood 22 mmol/L (21-32); Calcium, Blood 7.6 mg/dL (8.5-10.1); Chloride, Blood 109 mmol/L (98-108); Creatinine, Blood 1.18 mg/dL (0.60-1.20); Globulin, Blood 3.4 g/dL (2.2-4.0); Glomerular Filtration Rate >60 (60-); Glucose, Blood 138 mg/dL (70-99); Phosphorus, Blood 4.1 mg/dL (2.5-4.9); Potassium, Blood 4.6 mmol/L (3.5-5.5); Sodium, Blood 137 mmol/L (136-145); Total Protein, Blood 5.9 g/dL (6.4-8.2)
[2022-02-15 12:42] LABS: Hematocrit 23.7 % (37.0-53.0); Hemoglobin 7.4 g/dL (13.5-17.5); Mean Corpuscular HGB 30.7 pg (26.0-34.0); Mean Corpuscular HGB Conc 31.2 g/dL (31.5-36.5); Mean Corpuscular Volume 98 fL (80-100); Mean Platelet Volume 9.1 fL (9.1-12.4); Platelet Count 281 K/mm3 (150-400); RDW Coefficient Variation 18.4 % (11.7-14.2); RDW Standard Deviation 65.1 fL (35.1-46.3); Red Blood Cell Count 2.41 M/mm3 (4.30-5.90); White Blood Cell Count 6.37 K/mm3 (4.00-11.30)
[2022-02-15 13:50] LABS: BASOPHILS PERCENT MAN 0 % (0-2); EOSINOPHILS ABSOLUTE MAN 0.06 K/mm3 (0.00-0.68); EOSINOPHILS PERCENT MAN 1 % (0-6); LYMPHOCYTES ABSOLUTE MAN 0.38 K/mm3 (0.84-5.20); LYMPHOCYTES PERCENT MAN 6 % (21-46); MONOCYTES ABSOLUTE MAN 0.31 K/mm3 (0.16-1.47); MONOCYTES PERCENT MAN 5 % (4-13); SEG NEUTROPHILS PERCENT MAN 88 % (41-73); TOTAL CELLS COUNTED 100
== END | disposition home or self-care (01) ==
LOC: LAB SHORT 11:20
PROVIDERS: Internal Medicine
DX: N13.30 Unspecified hydronephrosis (principal); R60.9 Edema, unspecified
CPT/HCPCS: 80053; 83970; 84100; 85007; 85027

== ENCOUNTER → 2022-03-02 | Outpatient (CLI) | payer OTHER ==
[~2022-03-02] MED LIST changes: +ALCIS59.15 ML TOP; +ATROPINE SULFATE2 M1 SL; +FENTANYL1 EA11 TOP; +LORA.5 PO; +MORP20L SL; +NICODERM CQ1 EA17 TOP; +TRANSDERM-SCOP1 EA10 TD
[2022-03-02 16:05] LABS: Source, Urine Nephrostomy
[2022-03-02 16:07] LABS: Source, Urine Nephrostomy
[2022-03-02 17:20] LABS: Appearance, Urine Hazy (Clear); Bilirubin, Urine Neg (Neg); Blood, Urine 2+ (Neg); Color, Urine Yellow (P-Yellow); Glucose Qualitative, Urine Neg (Neg); Ketones, Urine Neg (Neg); Leukocyte Esterase, Urine 2+ (Neg); Nitrite, Urine Pos (Neg); Protein, Urine 2+ (Neg); Specific Gravity, Urine 1.015 (1.003-1.022); Urobilinogen, Urine NORM (Normal)
[2022-03-02 17:21] LABS: Appearance, Urine Hazy (Clear); Bilirubin, Urine Neg (Neg); Blood, Urine 5+ (Neg); Color, Urine Yellow (P-Yellow); Glucose Qualitative, Urine Neg (Neg); Ketones, Urine Neg (Neg); Leukocyte Esterase, Urine 3+ (Neg); Nitrite, Urine Pos (Neg); Protein, Urine 3+ (Neg); Urobilinogen, Urine NORM (Normal)
[2022-03-02 17:33] LABS: Bacteria Many /hpf
[2022-03-02 17:34] LABS: Squamous Epithelial Cells Rare /hpf (Few)
[2022-03-02 17:35] LABS: Hyaline Casts 0-2 /lpf (0-2)
[2022-03-02 17:36] LABS: White Blood Cells, Urine 25-50 /hpf (0-5)
== END ==
LOC: LAB HH 15:49
PROVIDERS: Family Medicine
DX: N39.0 Urinary tract infection, site not specified (principal)
CPT/HCPCS: 81001; 87077; 87086; 87186

== ENCOUNTER 2022-03-05 11:34 | Observation (INO) | payer OTHER ==
[~2022-03-05] VITALS: Ht 180.3 cm; Wt 69.4 kg
[~2022-03-05 11:34] MED LIST changes: -ALCIS59.15 ML TOP; -ATROPINE SULFATE2 M1 SL; -FENTANYL1 EA11 TOP; -LORA.5 PO; -MORP20L SL; -NICODERM CQ1 EA17 TOP; -TRANSDERM-SCOP1 EA10 TD
[2022-03-05 12:33] LABS: BASOPHILS ABSOLUTE AUTO 0.02 K/mm3 (0.00-0.23); BASOPHILS PERCENT AUTO 0 % (0-2); EOSINOPHILS ABSOLUTE AUTO 0.02 K/mm3 (0.00-0.68); EOSINOPHILS PERCENT AUTO 0 % (0-6); Hematocrit 21.1 % (37.0-53.0); Hemoglobin 6.7 g/dL (13.5-17.5); IMMATURE GRAN ABSOLUTE AUTO 0.08 K/mm3 (0.00-0.10); IMMATURE GRAN PERCENT AUTO 1 % (0-1); LYMPHOCYTES ABSOLUTE AUTO 0.46 K/mm3 (0.84-5.20); LYMPHOCYTES PERCENT AUTO 6 % (21-46); MONOCYTES ABSOLUTE AUTO 0.85 K/mm3 (0.16-1.47); MONOCYTES PERCENT AUTO 11 % (4-13); Mean Corpuscular HGB 31.2 pg (26.0-34.0); Mean Corpuscular HGB Conc 31.8 g/dL (31.5-36.5); Mean Corpuscular Volume 98 fL (80-100); Mean Platelet Volume 9.1 fL (9.1-12.4); NEUTROPHILS ABSOLUTE AUTO 6.18 K/mm3 (1.96-9.15); NEUTROPHILS PERCENT AUTO 81 % (41-73); Platelet Count 326 K/mm3 (150-400); RDW Coefficient Variation 18.7 % (11.7-14.2); RDW Standard Deviation 67.3 fL (35.1-46.3); Red Blood Cell Count 2.15 M/mm3 (4.30-5.90); White Blood Cell Count 7.61 K/mm3 (4.00-11.30)
[2022-03-05 12:41] LABS: Alanine Aminotransfer (ALT/SGP 42 U/L (12-78); Albumin, Blood 2.2 g/dL (3.4-5.0); Albumin/Globulin Ratio 0.5 (0.8-1.8); Alk Phos 277 U/L (50-136); Anion Gap 9 mmol/L (6-16); Aspartate Aminotrans (AST/SGOT 99 U/L (12-37); Bilirubin, Total 0.4 mg/dL (0.1-1.0); Blood Urea Nitrogen 24 mg/dL (8-24); Bun/Creatinine Ratio 24.4 (12.0-20.0); CO2, Blood 22 mmol/L (21-32); Calcium, Blood 8.2 mg/dL (8.5-10.1); Chloride, Blood 104 mmol/L (98-108); Creatinine, Blood 0.98 mg/dL (0.60-1.20); Globulin, Blood 4.5 g/dL (2.2-4.0); Glomerular Filtration Rate >60 (60-); Glucose, Blood 180 mg/dL (70-99); Potassium, Blood 3.8 mmol/L (3.5-5.5); Sodium, Blood 135 mmol/L (136-145); Total Protein, Blood 6.7 g/dL (6.4-8.2)
[2022-03-05 13:18] LABS: Source, Urine Nephrostomy
[2022-03-05 13:26] LABS: Appearance, Urine Hazy (Clear); Bilirubin, Urine Neg (Neg); Blood, Urine 2+ (Neg); Color, Urine Yellow (P-Yellow); Glucose Qualitative, Urine Neg (Neg); Ketones, Urine Neg (Neg); Leukocyte Esterase, Urine 3+ (Neg); Nitrite, Urine Neg (Neg); Protein, Urine 2+ (Neg); Urobilinogen, Urine 1+ (Normal)
[2022-03-05 13:41] LABS: Amorphous Mod (0-Heavy); Bacteria Many /hpf; Squamous Epithelial Cells Rare /hpf (Few); White Blood Cells, Urine 25-50 /hpf (0-5)
--- NOTE | 2022-03-06 14:12 | NUR ---
Spiritual Care visit with pt. in ED at the request of Palliative Care. Pt. is resting in bed, but welcomes my visit. Pt. is unsettled but not upset about the wait for a skilled Care facility. Pt. is pleasant, and rapport is established. Pt. displays evidence of being at peace, and verbalizes that his primarly support are local friends. There is no mention of NOK. Prayed with Pt. Pt. verbalizes gratitude for his spiritual care visit.
--- NOTE | 2022-03-06 14:31 | NUR ---
Pt in yesterday treated for anemia. Multipl case confrences and visits with pt for plan of care. Pt struggling with acceptance sent chaplian to see pt for support. pt may need cognative evaluation. Daughter contacted by grounds caretaker. She is willing to participate so is nephew but historical difficulties with family interactions. pt having increased pain and in hips, nephrostomy tube patent. He would be best servied by hospice. May need daughter to be decision maker. updated [facility] who were planning and intake.
[2022-03-07 04:32] LABS: BASOPHILS ABSOLUTE AUTO 0.02 K/mm3 (0.00-0.23); BASOPHILS PERCENT AUTO 0 % (0-2); EOSINOPHILS ABSOLUTE AUTO 0.05 K/mm3 (0.00-0.68); EOSINOPHILS PERCENT AUTO 1 % (0-6); Hematocrit 20.5 % (37.0-53.0); Hemoglobin 6.6 g/dL (13.5-17.5); IMMATURE GRAN ABSOLUTE AUTO 0.08 K/mm3 (0.00-0.10); IMMATURE GRAN PERCENT AUTO 1 % (0-1); LYMPHOCYTES ABSOLUTE AUTO 0.45 K/mm3 (0.84-5.20); LYMPHOCYTES PERCENT AUTO 7 % (21-46); MONOCYTES ABSOLUTE AUTO 0.51 K/mm3 (0.16-1.47); MONOCYTES PERCENT AUTO 8 % (4-13); Mean Corpuscular HGB Conc 32.2 g/dL (31.5-36.5); Mean Corpuscular Volume 96 fL (80-100); NEUTROPHILS PERCENT AUTO 84 % (41-73); Platelet Count 343 K/mm3 (150-400); RDW Coefficient Variation 18.4 % (11.7-14.2); RDW Standard Deviation 64.9 fL (35.1-46.3); Red Blood Cell Count 2.13 M/mm3 (4.30-5.90); White Blood Cell Count 6.71 K/mm3 (4.00-11.30)
[2022-03-07 04:49] LABS: Alanine Aminotransfer (ALT/SGP 138 U/L (12-78); Albumin, Blood 1.9 g/dL (3.4-5.0); Albumin/Globulin Ratio 0.5 (0.8-1.8); Alk Phos 299 U/L (50-136); Anion Gap 9 mmol/L (6-16); Aspartate Aminotrans (AST/SGOT 224 U/L (12-37); Bilirubin, Total 0.5 mg/dL (0.1-1.0); Blood Urea Nitrogen 30 mg/dL (8-24); CO2, Blood 21 mmol/L (21-32); Calcium, Blood 8.2 mg/dL (8.5-10.1); Chloride, Blood 104 mmol/L (98-108); Creatinine, Blood 1.07 mg/dL (0.60-1.20); Globulin, Blood 4.2 g/dL (2.2-4.0); Glomerular Filtration Rate >60 (60-); Glucose, Blood 104 mg/dL (70-99); Sodium, Blood 134 mmol/L (136-145); Total Protein, Blood 6.1 g/dL (6.4-8.2)
--- NOTE | 2022-03-07 05:59 | NUR ---
SHIFT SUMMARY: PATIENT ADMITTED FROM ED. SAT 88% ON ROOM AIR. LCTA, DIMINISHED IN BASES. PLACED ON 2L O3. PATIENT RA AT BASELINE. BILATERAL NEPHROSTOMY AND SUPRAPUBIC CATH IN PLACE. RIGHT NEPHROSTOMY WITH SHERRY COLORED URINE. LEFT NEPHROSTOMY AND SUPRAPUBIC WITH DARK YELLOW URINE. SCATTERED ECCHYMOSIS AND ABRASIONS T/0. PRESSURE ULCER TO MID BACK OVER JUNI PROMINENCE. COVERED WITH MEPILEX. PATIENT TURNED Q2 HOURS. COMPLAINTS OF ONGOING CHRONIC PAIN, TREATED PER EMAR. TMAX 100.9 MD CONTACTED, IBUPROFEN ORDERED DUE TO ELEVATED AST/ALT. PATIENT RECEIVED ENEMA IN ED YESTERDAY AND HAD LARGE BM. NONE SINCE. IS ON STOOL SOFTENRS. WCTM.
--- NOTE | 2022-03-07 12:07 | NUR ---
Pt resting in bed upon arrival. Pt is A&OX4. Pt reports 7/10 pain. Pt reports having a discussion with Dr Curran regarding prognosis and options for plan of care. Continued conversation regarding goals of care. Discsussed options for current plan of care and the option for comfort care and hospice. Educated on comfort care and hospice philosophy with V/U made by Pt. Pt reports wishes are for comfort care and hospice. Pt does report needing assistance with care. He reports when having pain he struggles with transfers, ambulation, bathing, and dressing. He reports plan for a friend to bring in information regarding his [employer] disability insurance in hopes that caremanagement can assist in determining if this would be beneficial for caregiver assistance. Pt reports no other concerns at this time. Spoke with Dr Curran and discussed case. Placed comfort care order, order for Roxanol 5-10mg Q 3 hours for pain and airhunger PRN, Ativan 0.5mg tablet PO every 4 hours PRN for anxiety, continued antibiotics for comfort per V/O from Dr Curran. Spoke with Caremandavid Isaac and discussed case. Spoke with Primary RN Jessica and discussed case. Palliative Care will remain available for symptom management and supportive visits.
--- NOTE | 2022-03-07 14:00 | NUR ---
PT CHANGED TO COMFORT CARE EARLIER THIS SHIFT. MEDICATED FOR PAIN WITH OXY AT THAT TIME. PAIN IS "OK" PER PT AT THIS TIME. WILL CTM
--- NOTE | 2022-03-07 14:01 | NUR ---
Spiritual Care Visit... Pt. is in bed and welcomes my visit. Pts. home caregiver is present. Pt. is pleasant. Re-establish rapport. Pt. has been identified as comfort care pt. Pt. is unsettled about broken relationships with certain family members. After caregiver excused themselves from the room. Gave Pastoral personal financial counselor and considered issues of robin and belief. Prayed with Pt. Pt. verbalized gratitude for the spiritual care visit.
--- NOTE | 2022-03-07 16:00 | NUR ---
COMFORT CARE NOTE- PT WAS GETTING READY TO GET A BED BATH. HE REQUESTED ROXINAL MEDICATED WITH 5MG WHICH SEEMED TO WORK VERY WELL FOR THE PT PAIN.
--- NOTE | 2022-03-07 18:20 | NUR ---
COMFORT CARE NOTE- PT IN BED, STATES HE IS COMFORTABLE AT THIS TIME WILL CTM.
--- NOTE | 2022-03-07 18:35 | NUR ---
SHIFT SUMMARY- PT SWITCHED TO COMFORT CARE TODAY, WAS MEDICATED ONCE FOR PAIN WITH ROXANOL 5MG AND STATES HIS PAIN IS BETTER NOW. PLAN IS FOR PT TO CONTINUE THE ANTIBIOTICS TO TREAT THE INFECTION, ALL OTHER TREATMENTS HAVE STOPPED AT THIS TIME. WILL CTM AND PASS ON TO NIGHT RN IN REPORT. PT ALSO HAD A FULL BED BATH TODAY.
--- NOTE | 2022-03-08 04:51 | NUR ---
SHIFT SUMMARY: PATIENT IS ON COMFORT CARE, TREATED PER EMAR. PATIENT HAS CHRONIC PAIN, WITH ADDITION TO TENDERNESS OF BONY PROMINANCE OF SPINE. REPOSITIONING, FLOATING, AND PROTECTIVE DRESSING PROVIDE SOME RELIEF. SUPRAPUBIC CATH, BILATERAL NEPHOROSTMY WITH RIGHT WITH DARK URINE OUTPUT. LEFT DARK YELLOW. SEEKING HOSPICE PLACEMENT. WCTM.
--- NOTE | 2022-03-08 10:40 | NUR ---
Pt resting in bed and reports 7/10 generalized pain. Pt reports not sleeping well last night and is tired. Pt inquires about his paper work for [employer] that his friend delivered yesterday. Deferred question for caremanager to discuss. Ended visit to allow Pt to rest. Spoke with Primary RN Kiki and discussed case. Kiki is requesting Fentanyl Patch and Aspircream for comfort. Pt appears to be hypersensitive and painful to touch. Pt also requiring frequent breakthrough pain medication. Consulted with hospital Pharmacist Endy and reviewed breathrough pain medication. Endy recommends Fentanyl Patch 50MCG. Spoke with Dr Curran and discussed case. Dr Curran will order Fentanyl Patch and Aspircream. Palliative Care will remain available.
--- NOTE | 2022-03-08 15:23 | NUR ---
PATIENT EXPRESSES THAT HE IS STILL HAVING A HARD TIME GETTING COMFORTABLE. HE IS REPOSITIONED AGAIN AND HIS HIPS ARE FLOATED ON PILLOWS. HE IS PULLED UP IN BED AND HE IS OFFERED LEMONADE AND ICE WATER. HIS FRIEND COMES TO VISIT AND PATIENT APPEARS IN BETTER SPIRITS.
[2022-03-08 15:50] LABS: Influenza A, PCR NEGATIVE (NEGATIVE); Influenza B, PCR NEGATIVE (NEGATIVE); Resp Syncytial Virus, PCR NEGATIVE (NEGATIVE); SARS-Cov-2 (COVID-19) PCR, MMC NEGATIVE (NEGATIVE)
--- NOTE | 2022-03-08 17:18 | NUR ---
SHIFT SUMMARY; PATIENT ON COMFORT CARE. HE IS AO X 4. HE HAS FLAT AFFECT, USES CALL LIGHT APPROPRIATELY. OK FOR FENTANYL PATCH 50MCG FOR SEVERE PAIN. PATIENT ALLOWS REPOSITIONING ONLY A FEW TIMES DURING DAY. NO BM TODAY. HE WILL TAKE MAG CITRATE IF NO BM BY TOMORROW. COVID TEST DONE FOR POSSIBLE REQUIREMENT FOR PLACEMENT AT FACILITY FOR HOSPICE.
--- NOTE | 2022-03-08 20:48 | NUR ---
PATIENT IS CURRENTLY REFUSING TURNING, WILL CONTINUE TO ENCOURAGE AND PROVIDE COMFORT MEASURES, A&o, MEDICATED FOR 7/10 GENERALIZED PAIN
--- NOTE | 2022-03-09 05:05 | NUR ---
SHIFT SUMMARY: Patient rested on and off throughout the night, difficulty controlling his pain, educated him on q2 hour turns however he continued to refuse throughout the night, medicated per EMAR for pain, left nephrostomy noted with yellow urine, very minimal dark output noted out of the right nephrostomy, yellow urine also noted from the suprapubic catheter, personal care provided PRN
--- NOTE | 2022-03-09 09:45 | NUR ---
Comfort Care Visit Pt resting in bed upon arrival. Pt reports 8/10 pain in his back. Offered therapeutic listening and gentle voice. Pt is agreeable for this RN to call his daughter Lizbet and provide update on plan of care. Pt reports no other concerns at this time. Spoke with Primary RN Tania and discussed case. Tania will offer pain medication. Called and spoke with Pt's daughter Lizbet. Provided update and and therapeutic listening. Listened as Lizbet reports having a strained relationship with Pt. Continued therapeutic listening and answered questions. Lizbet expresses appreciation and reports no other concerns at this time. Palliative Care will remain available.
--- NOTE | 2022-03-09 18:01 | NUR ---
COMFORT CARE SUMMARY PATIENT MEDICATED X3 FOR PAIN. ROXANOL INCREASED TO 5-20MG. PATIENT REPORTS 20MG EFFECTIVE. PATIENT REQUESTED TO GET OUT OF BED, ATTEMPTED TO SIT ON SIDE OF BED, PATIENT FATIGUED VERY QUICKLY AND HAD TO LAY BACK DOWN. PATIENT CURRENTLY RESTING COMFORTABLY.
--- NOTE | 2022-03-09 21:01 | NUR ---
COMFORT: PATIENT REPORTS BACK PAIN 8/10 AND IS RESTLESS. ROXAONL AND PRN ATIVANB ARE GIVEN WITH REPOSITIONING.
--- NOTE | 2022-03-10 02:04 | NUR ---
COMFORT: PATIENT REPRTS GOOD EFFECT FOR ATIVAN AND ROXANOL. EMOTIONAL SUPPORT AND T&P GIVEN. PO FLUIDS ENC.
--- NOTE | 2022-03-10 02:08 | NUR ---
COMFORT: PATIENT CONTINUES TO HAVE GOOD EFFECT FROM ROXANOL AND ATIVAN. T&P IS GIVEN
--- NOTE | 2022-03-10 02:11 | NUR ---
COMFORT: PATIENT IS RESTING WITH EYE'S CLOSED. REQUESTED TO TO BE WOKEN FOR T&P.
--- NOTE | 2022-03-10 05:53 | NUR ---
SHIFT SUMMARY: PATIENT REPORTS BACK PAIN 8/10 AND PATIENT IS RESTLESS AT TIMES AND CAN NOT GET COMFORTABLE. ROXANOL 10MG AND ATIVAN HAVE BEEN EFFECTIVE. PATIENT HAD SIPS OF WATER BUT NO SNACK. BILAT NEPHROSTOMY TUBES AND SUPRA PUBIC CATH ARE DRAINING AN SHERRY URINE
--- NOTE | 2022-03-10 14:37 | NUR ---
SHIFT SUMMARY PT RESTING QUIETLY AT START OF SHIFT. CURRENTLY ON COMFORT CARE. PT WITH CHRONIC SEVERE BACK PAIN, REPORTED IT TOLERABLE DURING SHIFT REPORT. DR GORDON IN TO SEE PT A LITTLE LATER. PT REPORTED PAIN INCREASING AGAIN. PT MEDICATED PER EMAR. REPOSITIONED PER PT REQUEST FOR COMFORT. DENTAL SURGEON NOTIFIED PER DR GORDON TO CLARIFY STATUS ON PT'S D/C ON HOSPICE. DENTAL SURGEON WORKING ON PLACEMENT AT THIS TIME. PT'S NEIGHBOR CALLED FOR UPDATE; GIVEN PER PT REQUEST. PT RESTING QUIETLY AT THIS TIME. CALL LT IN REACH.
--- NOTE | 2022-03-10 20:44 | NUR ---
COMFORT: PATIENT REPORTS GENERALIZED PAIN 7/10 ROXANOL 20MG IS GIVEN.
--- NOTE | 2022-03-10 22:33 | NUR ---
COMFORT: PATIENT REPORTS GENERALIZED PAIN 7-8/10, PRN OXYCODE IS GIVEN. PATIENT REPORTS FAIT EFFCT FROM ROXANOL AND ATIVAN GIVEN PRIOR. SNACK AND POP FLUIDS ARE GIVEN.
--- NOTE | 2022-03-11 02:21 | NUR ---
COMFORT: PATIENT IS RESTING QUIETLY WITH EYE'S CLOSED.
--- NOTE | 2022-03-11 02:23 | NUR ---
COMFORT: PATIENT REPORTS GENERALIZED PAIN 06/12, 20 MG OF ROXANOL IS GIVEN.
--- NOTE | 2022-03-11 06:36 | NUR ---
COMFORT: PATIENT IS RESTING COMFORTABLY. ORAL CARE AND T&P GIVEN.
--- NOTE | 2022-03-11 06:38 | NUR ---
SHIFT SUMMARY: PATIENT REPORTS GENERALIZED PAIN 06/03. MOANING WITH T&P. ROXANOL 20 MG WAS GIVEN. DRSG TO LEFT NEPH TUBE WAS CHANGED. EMOTIONAL SUPPORT GIVEN AND PO FLIUDS ENCOURAGED.
--- NOTE | 2022-03-11 13:58 | NUR ---
SHIFT SUMMARY PT RESTING QUIETLY AT START OF SHIFT. MEDICATED PER EMAR THRU OUT THE DAY. PT MEDICATED PRIOR TO REPOSITIONING AND CHANGING LINENS. C/O PAIN WHEN DR GORDON IN TO CK ON PT AND PRIOR TO BEING MEDICATED, PT REPORTED PAIN LEVEL IMPROVED AND HAS BEEN SLEEPING/RESTING QUIETLY BETWEEN WAKING FOR CARE. SUPRAPUBIC CATH DRSG CHANGED. NEW FENTANYL PATCH PLACED TO BACK. NICOTINE PATCH TO FABI. PT ABLE TO TALK ON PHONE OCCASSIONALLY BETWEEN NAPS. CONTINUES TO WAIT FOR CARE MANAGEMENT TO ARRANGE HOSPICE PLACEMENT. CALL LT IN REACH.
--- NOTE | 2022-03-11 22:47 | NUR ---
COMFORT: PATIENT IS RESTING COMFORTABLY IN BED. PATIENT IS HAVING DIFFICULTY TAKING PO FLUIDS WITH A STRAW. ORAL CARE GIVEN
--- NOTE | 2022-03-11 22:55 | NUR ---
COMFORT: PATIENT IS HAVING PAIN WITH T&P, ROXANOL IS GIVEN PRIOR TO TURNING.
--- NOTE | 2022-03-12 01:06 | NUR ---
COMFORT: PATIENT HAS GOOD EFFECT FROM ROXANOL. NO COMPLAINTS AT THIS TIME. NO S/S OF PAIN OR DISCOMFORT.
--- NOTE | 2022-03-12 08:14 | NUR ---
COMFORT: PATIENT CONTINUE TO REST COMFORTABLY, REQUEST NO T&P AT THIS TIME. ORAL CARE WAS GIVEN. REFUSED PO FLUIDS.
--- NOTE | 2022-03-12 08:16 | NUR ---
COMFORT CARE: PATIENT CONTINUES TO HAVE GOOD EFFECT FROM ROXANOL GIVEN AT 2154. 2 L [address], SOME COUGHING OBSERVED WITH PO FLUIDS.
--- NOTE | 2022-03-12 08:20 | NUR ---
SHIFT SUMMARY: PATIENT IS UNABLE TO SWALLOW PILLS EFFECTIVELY AT THIS TIME. PO INTAKE IS DECREASING. THIS IS NOW A OPEN AREA ON UPPER SPIN, MEPILEX IS CHANGED. NEPROSTOMY TUBES ARE LEAKING BUT THEIR IS OUTPUT DRAINING INTO BAGS ALSO. NO BM, ROXANOL WAS GIVEN FOR PAIN WITH GOOD EFFECT. FENTANYL PATCH IS IN PLACE ON BACK. HEEL PROTECTORS ARE IN PLACE.
--- NOTE | 2022-03-12 17:52 | NUR ---
Pt is agreeable to go home with hospice with his daughter in [place], [place]. Collaborated with Marlin Landers, Chore Worker on finding a hospice in the area and coordinating with pt's daughter and arranging a ride to [place]. [facility] are able to provide transportation via reclining w/c transport on Saturday morning. Pt will need to leave by 0800 to make it to [place] for hospice admission. Pt's daughter Lizbet is here today, and she is agreeable with the plan, as pt will be moving in with her and her . She admits feeling frustrated with her dad, as he refused to let her be a part of his treatment plan, stating now she is having to clean out his apartment and move him now instead of prior to him getting this sick and everything being done at the last minute. However, she began to calm as the plans began to take shape.
--- NOTE | 2022-03-13 04:31 | NUR ---
SHIFT SUMMARY ADMITTED FOR WEAKNESS. DNR CODE. COMFORT CARE. RIGHT AND LEFT NEPHROSTOMY DRAINS IN PLACE. SUPRAPUBIC CATHETER IN PLACE. 2 LPM O2 FOR COMFORT. ROXANOL GIVEN THIS SHIFT FOR PAIN. HE IS ON BEDREST, Q2 TURNS. HEEL PROTECTORS IN PLACE. HE IS ABLE TO TELL ME HE IS IN PAIN.
--- NOTE | 2022-03-13 12:00 | NUR ---
Summary of Comfort care visits and case conferences with RN, CM, Pharmacist and Dr Harvey. Student RN present for visits. Joanne at bedside and appears distressed, anxious, appropriately tearful. Pt is moaning, grimacing, frowning and restless. Nonverbal indicators of 7/10 pain. Pt is not swallowing well so he is unable to take PO analgesics ordered. He currently has a duragesic patch 50 mcg applied and is has Roxanol 20 mg prn l2gyuba being given q3-4 hours round the clock. Discussed calling Dr with report and to request VO to increase the duragesic patch to 75 mcg and increase the frequency of dosing the Roxanol to q1H prn with RN & daughter and they are both in favor of this plan. T/c update to Dr with report on visit. VO obtained and entered for medication changes as above. Discussed plan for change of duragisic patch now with pharmacy also. Comfort care cart ordered for joanne staying in pt's room. Return visit to spend time with joanne, educated on s/s she is seeing, progression of dying process, nonverbal indicators of pain, hospice services. Time spent listening. She will have help caring for her dad in her home from her , a niece and another sister in the [place] area. I spoke with [facility] staff person and our CM re: plan for transport at 830 tomorrow am and hospice admission. Copies of pt's AD, POA and will made for joanne and copy kept for pt's medical records. Originals also given back to joanne. Joanne instructed in oral care and provided with sponges and cold lemon water. Razor obtained for her at her request so she could trim her dad's facial hair. Pt was not responsive to voice or touch while I visited. He is holding hands together, gripped over his chest. Aspriation precautions discussed with joanne, in event pt becomes more awake and alert enough to attempt spoons of fluids. Joanne verbalized appreciation for visits and care her dad is receiving.
--- NOTE | 2022-03-13 12:30 | NUR ---
PER REPORT TODAY FROM STANLEY MARINA PATIENT TO LEAVE AT 0830 TOMORROW VIA RECLINING WHEELCHAIR AND SECURE TRANSPORT. GOING TO HIS DAUGHTERS HOME IN [facility]. PALLIATIVE CARE JOSE CARLOS ASKED FOR INCREASE IN PATIENTS ROXINOL FROM Q3 HOURS TO QHOURLY. NO CHANGE IN DOSE ADMINISTRATION. JOSE CARLOS ALSO INDICATED THAT DOCTOR GORDON WILL INCREASE PATIENTS FENTANYL PATCH TO 75MCG Q 3 DAYS. WILL CONTINUE TO MONITOR THIS PATIENT CLOSELY
--- NOTE | 2022-03-13 17:08 | NUR ---
Spiritual Care Visit. Pt. is resting, and remains so for entire visit. Daughter is present. Daughter is displaying evidence of stress and anxiety for the recent decision to make her POA. Facilitate a family history, and through pastoral listening identify some historic broken relationships. Daughter becomes cathartic at times. Listen empatheticically with a calming presence. Daughter displays evidence of reduced anxiety. [place] with Pt. and alberto. Daughter verbalizes gratitude for the spiritual care visit.
--- NOTE | 2022-03-13 18:42 | NUR ---
SHIFT SUMMARY; PATIENT TO BE DISCHARGED TO HOME WITH HIS DAUGHTER ON HOSPICE. HE IS GOING BY SECURE TRANSPORT AND RECLINING WHEEL CHAIR. FAMILY REQUEST PATIENT TO BE MEDICATED FOR PAIN PRIOR TO LEAVING. PATIENTS PRESCRIPTIONS ARE IN CHART AND SHOULD BE HANDED TO FAMILY PRIOR TO PATIENT LEAVING. HIS FENTANYL PATCH WAS INCREASED TO 75MCG TODAY. HE IS ALSO GETTING ROXINOL 10-20MG Q 1 HOUR IF NEEDED. HE IS NOTED TO BE MOANING AND THRASHING IN BED AND KICKING OUT HIS LEGS AND ARMS. AND IS MEDICATED PER EMAR. PATIENT FEELS WARM TO TOUCH TODAY AND BLANKETS ARE REMOVED AND SHEET LEFT IN PLACE. PATIENT APPEARS MORE COMFORTABLE. PATIENT DOES NOT EAT OR DRINK FLUIDS. HE DOES HAVE DIFFICULTY SWALLOWING AND SHAKES HEAD NO WHEN ASKED IF HE WANTS ANYTHING. WILL CONTINUE TO MONITOR THIS PATIENT CLOSELY UNTIL REPORT AND HAND OFF TO NOC SHIFT RN.
--- NOTE | 2022-03-14 04:05 | NUR ---
SHIFT SUMMARY ADMITTED FOR WEAKNESS. DNR CODE. PLAN IS FOR DC W/TRANSPORT TO DAUGHTER'S HOUSE IN [place] THIS MORNING ON HOSPICE. RIGHT AND LEFT NEPHROSTOMY DRAINS. SUPRAPUBIC CATHETER. HX: RENAL/BLADDER CANCER W/METS. HE IS ON BEDREST. HIS INTAKE IS POOR AND HE ASPIRATES. PAIN MEDICATION GIVEN THIS SHIFT. Q2 TURNS TOLERATED. 2 LPM O2 FOR COMFORT.
[2022-03-14] MEDS ORDERED: ATROPINE SULFATE2 M1 SL (07:43)
[2022-03-14] MEDS ORDERED: LORA.5 PO (07:45)
[2022-03-14] MEDS ORDERED: NICODERM CQ1 EA17 TOP (07:46)
[2022-03-14] MEDS ORDERED: TRANSDERM-SCOP1 EA10 TD (07:48)
[2022-03-14] MEDS ORDERED: ALCIS59.15 ML TOP (07:51)
[2022-03-14] MEDS ORDERED: MORP20L SL (07:52)
[2022-03-14] MEDS ORDERED: FENTANYL1 EA11 TOP (07:53)
--- NOTE | 2022-03-14 08:46 | NUR ---
DISCHARGE SUMMARY PT DC'D HOME WITH DAUGHTER ON HOSPICE. PT REQUIRED ANASTASIYA LIFT TO GET INTO WHEELCHAIR TRANSPORT. CATH CARE, PAIN MANAGEMENT, AND ATTENDS CHANGE COMPLETED PRIOR TO LEAVING. IV REMOVED. PT TO BE TRANSPORTED TO DAUGHTER'S HOUSE IN [place], [place].
== END 2022-03-14 08:45 | disposition hospice, home (50) ==
LOC: ER 11:34 → MEDS 03-06 11:35
PROVIDERS: Family Medicine; Student in an Organized Health Care Education/Training Program; ADMIT Internal Medicine
DX: N13.6 Pyonephrosis (principal); B95.2 Enterococcus as the cause of diseases classified elsewhere; B96.89 Other specified bacterial agents as the cause of diseases classified elsewhere; R53.1 Weakness; C61 Malignant neoplasm of prostate; Z51.5 Encounter for palliative care; I10 Essential (primary) hypertension; F17.210 Nicotine dependence, cigarettes, uncomplicated; I73.9 Peripheral vascular disease, unspecified; Z93.6 Other artificial openings of urinary tract status; Z89.422 Acquired absence of other left toe(s); D64.9 Anemia, unspecified; K59.00 Constipation, unspecified; R74.01 Elevation of levels of liver transaminase levels; Z66 Do not resuscitate; Z20.822 Contact with and (suspected) exposure to COVID-19
CPT/HCPCS: 0241U; 36415; 36430; 74177; 80053; 81001; 83690; 84153; 85025; 86850; 86900; 86901; 86923; 87077; 87086; 87186; 93005; 93010; 96374; 96375; 97110; 97162; 97530; 99285-25; A9270; J0696; J1650; J1885; J7030; P9016; Q9967